=== PATIENT | female | born 1970 | race Native Hawaiian/Other Pacific Islander ===

== ENCOUNTER 2017-07-18 18:47 | Emergency (ER) | payer OTHER ==
[2017-07-18 19:29] VITALS: O2SAT 100
--- NOTE | 2017-07-18 19:32 | C.PDOC ---
History Of Present Illness The patient presents to the ED for evaluation of lightheadedness and dizziness which began a couple days ago. Patient saw her PMD yesterday for evaluation of symptoms and was advised to present to the ED for further evaluation. Patient's hemoglobin level was 13.7 g/dL on 06/27 and dropped to 8.6 g/dL by 07/17. Patient notes she has heavy menstrual bleeding and denies chest pain and palpitations at this time. Time Seen by Provider: 07/18/17 19:32 Chief Complaint (Nursing): Dizziness/Lightheaded History Per: Patient History/Exam Limitations: no limitations Onset/Duration Of Symptoms: Days Current Symptoms Are (Timing): Still Present Seizure Or Post-ictal Symptoms: None Fall Associated With With Symptoms: No Severity: Mild Pain Scale Rating Of: 3 Recent travel outside of the [place]: No Additional History Per: Patient Past Medical History Reviewed: Historical Data, Nursing Documentation, Vital Signs Vital Signs: Last Vital Signs Temp 98.2 F 07/18/17 23:23 Pulse 93 H 07/18/17 23:23 Resp 20 07/18/17 23:23 BP 101/54 L 07/18/17 23:23 Pulse Ox 100 07/18/17 23:23 - Medical History PMH: No Chronic Diseases Surgical History: No Surg Hx Family History: States: Unknown Family Hx - Social History Hx Alcohol Use: No Hx Substance Use: No - Immunization History Hx Tetanus Toxoid Vaccination: No Hx Influenza Vaccination: Yes Hx Pneumococcal Vaccination: No Review Of Systems Constitutional: Negative for: Fever, Chills Cardiovascular: Negative for: Chest Pain, Palpitations Respiratory: Negative for: Cough, Shortness of Breath Gastrointestinal: Negative for: Nausea, Vomiting, Abdominal Pain Skin: Negative for: Rash, Lesions, Jaundice, Bruising Neurological: Positive for: Dizziness, Other (lightheadedness). Negative for: Weakness, Numbness, Change in Speech, Confusion, Altered Mental Status, Headache Psych: Negative for: Anxiety Physical Exam - Physical Exam Appears: Non-toxic, No Acute Distress Skin: Warm, Dry, Pale (slightly ) Head: Normacephalic Eye(s): bilateral: Normal Inspection Oral Mucosa: Moist Neck: Supple Chest: Symmetrical, No Deformity, No Tenderness Cardiovascular: Rhythm Regular, No Murmur Respiratory: No Rales, No Rhonchi, No Wheezing Extremity: Normal ROM, Capillary Refill (less than 2 seconds ) Neurological/Psych: Oriented x3 Gait: Steady ED Course And Treatment - Laboratory Results Result Diagrams: 07/18/17 19:45 07/18/17 19:45 O2 Sat by Pulse Oximetry: 100 (on RA) Pulse Ox Interpretation: Normal Progress Note: Bloodwork and urinalysis ordered. Reevaluation Time: 23:29 Reassessment Condition: Improved Disposition Counseled Patient/Family Regarding: Studies Performed, Diagnosis, Need For Followup - Disposition Referrals: Chaya Soler MD [Staff Provider] - Disposition: HOME/ ROUTINE Disposition Time: 19:32 Condition: FAIR Additional Instructions: Please return if symptoms recur Instructions: Anemia (DC), Iron Deficiency Anemia (ED), Menorrhagia (ED) Forms: [employer] ([place]) - Clinical Impression Clinical Impression: Menorrhagia, Anemia - Scribe Statement The provider has reviewed the documentation as recorded by the Scribe (Melissa Benites) Provider Attestation: All medical record entries made by the Scribe were at my direction and personally dictated by me. I have reviewed the chart and agree that the record accurately reflects my personal performance of the history, physical exam, medical decision making, and the department course for this patient. I have also personally directed, reviewed, and agree with the discharge instructions and disposition.
[2017-07-18 19:52] LABS: URINE BILIRUBIN NEGATIVE (NEGATIVE); URINE BLOOD NEGATIVE (NEGATIVE); URINE COLOR Colorless (YELLOW); URINE GLUCOSE (UA) NORMAL (Normal); URINE KETONE NEGATIVE (NEGATIVE); URINE LEUKOCYTE ESTERASE NEG Leu/uL (Negative); URINE PROTEIN NEGATIVE (NEGATIVE); URINE UROBILINOGEN NORMAL mg/dL (0.2-1.0); WBC URINE < 1 /hpf (0-5)
[2017-07-18 19:54] LABS: BASO # 0.1 K/uL (0.0-0.2); BASO % 1.3 % (0.0-2.0); EOS # 0.2 K/uL (0.0-0.7); EOS % 3.1 % (0.0-4.0); HEMATOCRIT 21.4 % (34.0-47.0); LYMPH # 2.5 K/uL (1.0-4.3); LYMPH % 34.5 % (20.0-40.0); MEAN CELL VOLUME 84.2 fL (81.0-99.0); MEAN CORPUSCULAR HEMOGLOBIN 28.2 pg (27.0-31.0); MEAN CORPUSCULAR HGB CONC 33.5 g/dL (33.0-37.0); MEAN PLATELET VOLUME 7.1 fL (7.2-11.7); MONO # 0.4 K/uL (0.0-0.8); MONO % 5.9 % (0.0-10.0); NRBC % 0.2 % (0.0-2.0); RED CELL DISTRIBUTION WIDTH 15.7 % (11.5-14.5); WHITE BLOOD COUNT 7.3 K/uL (4.8-10.8)
[2017-07-18 20:06] LABS: INR 0.9
[2017-07-18 20:07] LABS: ALB/GLOB RATIO 1.6 (1.0-2.1); ALKALINE PHOSPHATASE 41 U/L (38-126); ALT/SGPT 34 U/L (9-52); AST/SGOT 17 U/L (14-36); BILIRUBIN,TOTAL < 0.1 mg/dL (0.2-1.3); BLOOD UREA NITROGEN 9 mg/dL (7-17); CALCIUM 7.3 mg/dl (8.6-10.4); CARBON DIOXIDE 29 mmol/L (22-30); CHLORIDE 101 mmol/L (98-107); GFR AFRICAN-AMERICAN > 60; GLUCOSE,RANDOM 98 mg/dL (65-105); POTASSIUM 3.2 mmol/L (3.6-5.2); SODIUM 138 mmol/L (132-148); TOTAL PROTEIN 5.5 g/dL (6.3-8.3)
[2017-07-18 20:08] LABS: IRON 16 ug/dL (37-170)
--- NOTE | 2017-07-18 22:13 | US ---
EXAM: US Pelvis Complete, Transabdominal CLINICAL HISTORY: 46 years old, female; Signs and symptoms; Other: Vag bleed; Prior surgery; Surgery type: C- section; Patient HX: Prior 09-06-15; Additional info: Menometrorrhagia TECHNIQUE: Real-time transabdominal pelvic ultrasound (complete) with image documentation. COMPARISON: US - PELVIS ULTRASOUND 2015-09-06 09:04 FINDINGS: Uterus/cervix: Uterus measures 9.2 x 5.1 x 6.7 cm in size. 3.0 x 4.1 x 3.9 cm uterine mass. Endometrium: 1.0 cm in thickness. Nabothian cysts. Right ovary: 2.9 x 1.8 x 2.8 cm in size. 2.0 x 1.6 x 1.4 cm anechoic lesion. Small follicles. Normal flow. Left ovary: Not visualized. Free fluid: No significant free fluid. Bladder: Unremarkable as visualized. IMPRESSION: 1. Probable fibroid. 2. RIGHT ovarian cyst. EXAM: US Pelvis, Transvaginal CLINICAL HISTORY: 46 years old, female; Signs and symptoms; Other: Vag bleed; Prior surgery; Surgery type: C- section; Patient HX: Prior 09-06-15; Additional info: Menometrorrhagia TECHNIQUE: Real-time transvaginal pelvic ultrasound (complete) with image documentation. Transvaginal imaging was used for better evaluation of the endometrium and adnexa. COMPARISON: US - PELVIS ULTRASOUND 2015-09-06 09:04 FINDINGS: Uterus/cervix: Uterus measures 9.2 x 5.1 x 6.7 cm in size. 3.0 x 4.1 x 3.9 cm uterine mass. Endometrium: 1.0 cm in thickness. Nabothian cysts. Right ovary: 2.9 x 1.8 x 2.8 cm in size. 2.0 x 1.6 x 1.4 cm anechoic lesion. Small follicles. Normal flow. Left ovary: Not visualized. Free fluid: No significant free fluid. Bladder: Empty bladder which cannot be evaluated with this probe.
[2017-07-18] MEDS ORDERED: Ferric Sodium Gluconat Complex 62.5 mg/5 ml Vial IVPB SCH (22:45)
[2017-07-18] MEDS ORDERED: Ferric Sodium Gluconat Complex 125 MG in Sodium Chloride 0.9% 100 ML IVPB ONE (23:00)
[2017-07-18 23:25] VITALS: RESP 20
[2017-07-19 00:13] VITALS: BP 112/71; PULSE 96; TEMP 97.9
[2017-07-19] MEDS ORDERED: Ferric Sodium Gluconat Complex 62.5 mg/5 ml Vial IVPB SCH (10:00)
== END 2017-07-19 00:14 | disposition home or self-care (01) ==
LOC: C.ER 18:47
DX: N92.0 Excessive and frequent menstruation with regular cycle (principal); D64.9 Anemia, unspecified
CPT/HCPCS: 76830; 76856; 80053; 81001; 83540; 83550; 84703; 85025; 85610; 85730; 86850; 86900; 96365; 99285; J2916

== ENCOUNTER 2018-08-17 07:28 | Outpatient (CLI) | payer OTHER | END 2018-08-17 07:29 | disposition home or self-care (01) | LOC: C.LAB 07:28 | DX: D50.0 Iron deficiency anemia secondary to blood loss (chronic) (principal); N92.4 Excessive bleeding in the premenopausal period; Z00.00 Encounter for general adult medical examination without abnormal findings; Z68.28 Body mass index [BMI] 28.0-28.9, adult ==